=== PATIENT | male | born 1945 | race Caucasian/White ===

== ENCOUNTER → 2019-11-01 | Outpatient (CLI) | payer OTHER ==
--- NOTE | 2019-11-01 14:05 | US ---
EXAMINATION TYPE: US carotid duplex BILAT DATE OF EXAM: 11/01/2019 COMPARISON: US 2016 CLINICAL HISTORY: I65.29 Occlusion and stenosis of carotid artery. EXAM MEASUREMENTS: RIGHT: Peak Systolic Velocity (PSV) cm/sec ----- Right CCA: 40.9 ----- Right ICA: 102.7 ----- Right ECA: 58.1 ICA/CCA ratio: 2.5 RIGHT: End Diastole cm/sec ----- Right CCA: 0.0 ----- Right ICA: 17.1 ----- Right ECA: 0.0 LEFT: Peak Systolic Velocity (PSV) cm/sec ----- Left CCA: 50.3 ----- Left ICA: 75.6 ----- Left ECA: 166.8 ICA/CCA ratio: 1.5 LEFT: End Diastole cm/sec ----- Left CCA: 0.0 ----- Left ICA: 14.5 ----- Left ECA: 0.0 VERTEBRALS (direction of flow): Right Vertebral: Antegrade Left Vertebral: Antegrade Rhythm: Normal Redemonstration moderate to severe eccentric plaque bilaterally centered at bilateral carotid bulb le nay. IMPRESSION: Severe atherosclerotic changes bilaterally without hemodynamically significant stenosis in either internal carotid artery. No significant progression from prior ultrasound 2016. Criteria for Assigning % of Stenosis / Diameter reduction (Estimation based on the indirect measurements of the internal carotid artery velocities (ICA PSV). 1. Normal (no stenosis)=ICA PSV < 125 cm/s: ratio < 2.0: ICA EDV<40 cm/s. 2. Less than 50% stenosis=ICA PSV < 125 cm/s: ratio < 2.0: ICA EDV<40 cm/s. 3. 50 to 69% stenosis=ICA PSV of 125 to 230 cm/s: ration 2.0 ? 4.0: ICA EDV 40-100 cm/s. 4. Greater than 70% stenosis to near occlusion= ICA PSV > 230 cm/s: ratio > 4.0: ICA EDV > 100 cm/s. 5. Near occlusion= ICA PSV velocities may be low or undetectable: variable ratio and ICA EDV. 6. Total occlusion=unable to detect flow.
== END | disposition home or self-care (01) ==
LOC: RADUSWWP 13:18
PROVIDERS: ATTEND Nurse Practitioner Acute Care
DX: I65.23 Occlusion and stenosis of bilateral carotid arteries (principal)
CPT/HCPCS: 93880

== ENCOUNTER 2022-09-05 18:45 | Emergency (ER) | payer OTHER ==
[2022-09-05] MEDS ORDERED: ACETAMINOPHEN TAB 500 MG TAB PO STA (19:04)
[2022-09-05] MEDS ORDERED: ONDANSETRON 4 MG/2 ML VIAL IVP STA (19:04)
[2022-09-05 19:05] VITALS: RESP 18; TEMP 100.4
[2022-09-05] MEDS ORDERED: SODIUM CHLORIDE 0.9% 1,000 ML IV STA (19:06)
--- NOTE | 2022-09-05 19:21 | ED ---
Fall HPI - General Chief Complaint: Fall Stated Complaint: Coffee Ground Emesis Time Seen by Provider: 09/05/22 18:58 Source: patient, EMS, RN notes reviewed Mode of arrival: EMS - History of Present Illness Initial Comments: This is a 77-year-old male who presents to the emergency department from [facility] for several falls and vomiting. For the last 1-2 days, the patient states that he has had multiple falls. He is not sure why, denies feeling dizzy before hand. He has not had any loss of consciousness or injuries from these falls. Believes that they are because he feels fatigued. Denies being on any blood thinners. He has also had nausea and vomiting for the last 1-2 days. He did test positive for COVID earlier today. Patient otherwise states that he feels fine and denies any other complaints. Denies any fevers, chills, sore throat, cough, dyspnea, chest pain, palpitations, abdominal pain, diarrhea, back pain, or headaches. MD Complaint: fall - Related Data Allergies Allergy/AdvReac Type Severity Reaction Status Date / Time No Known Allergies Allergy Verified 09/05/22 19:00 Review of Systems ROS Statement: Those systems with pertinent positive or pertinent negative responses have been documented in the HPI. ROS Other: All systems not noted in ROS Statement are negative. Past Medical History Past Medical History: Hypertension History of Any Multi-Drug Resistant Organisms: None Reported Past Psychological History: No Psychological Hx Reported Smoking Status: Current some day smoker Past Alcohol Use History: Occasional Past Drug Use History: None Reported General Exam Limitations: no limitations General appearance: alert, in no apparent distress Head exam: Present: atraumatic, normocephalic, normal inspection Respiratory exam: Present: normal lung sounds bilaterally. Absent: respiratory distress, wheezes, rales, rhonchi, stridor Cardiovascular Exam: Present: regular rate, normal rhythm, normal heart sounds. Absent: systolic murmur, diastolic murmur, rubs, gallop, clicks GI/Abdominal exam: Present: soft, normal bowel sounds. Absent: distended, tenderness, guarding, rebound, rigid Neurological exam: Present: alert, oriented X3, CN II-XII intact Psychiatric exam: Present: normal affect, normal mood Skin exam: Present: warm, dry, intact, normal color. Absent: rash Course Vital Signs 09/05/22 18:49 Temperature 100.4 F H Pulse Rate 82 Respiratory 18 Rate Blood Pressure 139/77 O2 Sat by Pulse 97 Oximetry Medical Decision Making - Medical Decision Making This is a 77-year-old male who presents to the emergency department for frequent falls and nausea. Lab work was nonactionable and urinalysis is negative for any signs of infection. Chest x-ray reveals no acute cardiopulmonary process. Patient did have an episode of emesis upon initial evaluation. He was given IV fluids and Zofran, and reports symptomatic improvement. He was febrile at 100.4F, likely secondary to COVID-19 and was subsequently treated with Tylenol. I offered the Paxlovid prescription, however the patient declined. He was given a starter pack for Zofran in the event he has anymore nausea or vomiting. Recommended getting plenty of rest and continuing with symptomatic management. The patient is also instructed to quarantine for 5 days and practice extra precautions for an additional 5 days, including always wearing a mask around others and avoiding travel. Return precautions reviewed in depth, the patient is instructed to return to the emergency department with any new, worsening, or concerning symptoms. Patient verbalized understanding. This case was discussed in detail with the attending ED physician. Presentation, findings, and treatment plan discussed in detail as well. - Lab Data Result diagrams: 09/05/22 19:09/05/22 19: Lab Results 09/05/22 09/05/22 09/05/22 Range/Units 19:22 19:22 19:22 WBC 4.3 (3.8-10.6) k/uL RBC 4.62 (4.30-5.90) m/uL Hgb 13.3 (13.0-17.5) gm/dL Hct 39.8 (39.0-53.0) % MCV 86.1 (80.0-100.0) fL MCH 28.7 (25.0-35.0) pg MCHC 33.3 (31.0-37.0) g/dL RDW 16.7 H (11.5-15.5) % Plt Count 133 L (150-450) k/uL MPV 9.2 Neutrophils % 78 % Lymphocytes % 9 % Monocytes % 9 % Eosinophils % 0 % Basophils % 1 % Neutrophils # 3.4 (1.3-7.7) k/uL Lymphocytes # 0.4 L (1.0-4.8) k/uL Monocytes # 0.4 (0-1.0) k/uL Eosinophils # 0.0 (0-0.7) k/uL Basophils # 0.0 (0-0.2) k/uL Anisocytosis Slight Sodium 136 L (137-145) mmol/L Potassium 4.2 (3.5-5.1) mmol/L Chloride 102 (98-107) mmol/L Carbon Dioxide 21 L (22-30) mmol/L Anion Gap 13 mmol/L BUN 17 (9-20) mg/dL Creatinine 0.96 (0.66-1.25) mg/dL Est GFR (CKD-EPI)AfAm 89 (>60 ml/min/1.73 sqM) Est GFR (CKD-EPI)NonAf 77 (>60 ml/min/1.73 sqM) Glucose 137 H (74-99) mg/dL Calcium 8.9 (8.4-10.2) mg/dL Total Bilirubin 0.5 (0.2-1.3) mg/dL AST 38 (17-59) U/L ALT 23 (4-49) U/L Alkaline Phosphatase 84 (38-126) U/L Troponin I (0.000-0.034) ng/mL Total Protein 6.3 (6.3-8.2) g/dL Albumin 3.8 (3.5-5.0) g/dL Urine Color Yellow Urine Appearance Clear (Clear) Urine pH 5.5 (5.0-8.0) Ur Specific [place] 1.018 (1.001-1.035) Urine Protein Trace H (Negative) Urine Glucose (UA) Negative (Negative) Urine Ketones Negative (Negative) Urine Blood Negative (Negative) Urine Nitrite Negative (Negative) Urine Bilirubin Negative (Negative) Urine Urobilinogen <2.0 (<2.0) mg/dL Ur Leukocyte Esterase Negative (Negative) 09/05/22 Range/Units 19:22 WBC (3.8-10.6) k/uL RBC (4.30-5.90) m/uL Hgb (13.0-17.5) gm/dL Hct (39.0-53.0) % MCV (80.0-100.0) fL MCH (25.0-35.0) pg MCHC (31.0-37.0) g/dL RDW (11.5-15.5) % Plt Count (150-450) k/uL MPV Neutrophils % % Lymphocytes % % Monocytes % % Eosinophils % % Basophils % % Neutrophils # (1.3-7.7) k/uL Lymphocytes # (1.0-4.8) k/uL Monocytes # (0-1.0) k/uL Eosinophils # (0-0.7) k/uL Basophils # (0-0.2) k/uL Anisocytosis Sodium (137-145) mmol/L Potassium (3.5-5.1) mmol/L Chloride (98-107) mmol/L Carbon Dioxide (22-30) mmol/L Anion Gap mmol/L BUN (9-20) mg/dL Creatinine (0.66-1.25) mg/dL Est GFR (CKD-EPI)AfAm (>60 ml/min/1.73 sqM) Est GFR (CKD-EPI)NonAf (>60 ml/min/1.73 sqM) Glucose (74-99) mg/dL Calcium (8.4-10.2) mg/dL Total Bilirubin (0.2-1.3) mg/dL AST (17-59) U/L ALT (4-49) U/L Alkaline Phosphatase (38-126) U/L Troponin I <0.012 (0.000-0.034) ng/mL Total Protein (6.3-8.2) g/dL Albumin (3.5-5.0) g/dL Urine Color Urine Appearance (Clear) Urine pH (5.0-8.0) Ur Specific [place] (1.001-1.035) Urine Protein (Negative) Urine Glucose (UA) (Negative) Urine Ketones (Negative) Urine Blood (Negative) Urine Nitrite (Negative) Urine Bilirubin (Negative) Urine Urobilinogen (<2.0) mg/dL Ur Leukocyte Esterase (Negative) - EKG Data EKG Comments: Sinus rhythm with sinus arrhythmia. Ventricular rate 80 bpm, NH interval 161 ms, QRS duration 98 ms, QTC 411 ms. - Radiology Data Radiology results: report reviewed, image reviewed Disposition Clinical Impression: COVID-19 Disposition: HOME SELF-CARE Instructions (If sedation given, give patient instructions): Fall Prevention for Older Adults (ED), COVID-19 (Coronavirus Disease 2019) (ED), Safely Care for Someone Who Has COVID-19 (ED), How to Recover from COVID-19 at Home (ED), Social Distancing Guidelines for COVID-19 (ED) Additional Instructions: Return to the emergency department with any new, worsening, or concerning symptoms. The Zofran can be taken up to every 8 hours as needed for nausea and vomiting. Make sure that you are getting plenty of rest and continuing with symptomatic management. You are instructed to quarantine for 5 days and practice extra precautions for an additional 5 days, including always wearing a mask around others and avoiding travel. Take Tylenol and ibuprofen as needed for any fevers or discomfort. Is patient prescribed a controlled substance at d/c from ED?: No Referrals: Louie Jimenez DO [Primary Care Provider] - 1-2 days
[2022-09-05 19:34] LABS: Anisocytosis Slight; Appearance,Urine Clear (Clear); Basophils % (A) 1 %; Bilirubin,Urine Negative (Negative); Blood,Urine Negative (Negative); Color,Urine Yellow; Eosinophils % (A) 0 %; Glucose,Urine (UA) Negative (Negative); HCT 39.8 % (39.0-53.0); HGB 13.3 gm/dL (13.0-17.5); Ketones,Urine Negative (Negative); Leukocyte Esterase,Urine Negative (Negative); Lymphocytes # (A) 0.4 k/uL (1.0-4.8); Lymphocytes % (A) 9 %; MCH 28.7 pg (25.0-35.0); MCHC 33.3 g/dL (31.0-37.0); MCV 86.1 fL (80.0-100.0); Mean Platelet Volume 9.2; Monocytes # (A) 0.4 k/uL (0-1.0); Monocytes % (A) 9 %; Neutrophils # (A) 3.4 k/uL (1.3-7.7); Neutrophils % (A) 78 %; Nitrite,Urine Negative (Negative); PH, Urine 5.5 (5.0-8.0); Platelet Count 133 k/uL (150-450); Protein,Urine Trace (Negative); RBC 4.62 m/uL (4.30-5.90); RDW 16.7 % (11.5-15.5); Specific Gravity,Urine 1.018 (1.001-1.035); Urobilinogen,Urine <2.0 mg/dL (<2.0); WBC 4.3 k/uL (3.8-10.6)
[2022-09-05 19:45] LABS: Albumin 3.8 g/dL (3.5-5.0); Calcium 8.9 mg/dL (8.4-10.2); Potassium 4.2 mmol/L (3.5-5.1); Total Bilirubin 0.5 mg/dL (0.2-1.3); Total Protein 6.3 g/dL (6.3-8.2)
--- NOTE | 2022-09-05 20:55 | XR ---
EXAMINATION TYPE: XR chest 2V DATE OF EXAM: 09/05/2022 COMPARISON: NONE HISTORY: Weakness TECHNIQUE: 3 views FINDINGS: Heart and mediastinum are normal. The lungs are clear consolidation. There is some mild coa rsening of interstitial markings. No heart failure. There are chest leads. No pleural effusion. Bony thorax is intact. IMPRESSION: No active cardiopulmonary disease. Minimal fibrotic changes. Normal heart.
[2022-09-05] MEDS ORDERED: ONDANSETRON 4 MG ODT STARTER PACK 2 TAB BTL PO STA (21:17)
[2022-09-05 22:09] VITALS: BP 144/66; PULSE 78
== END 2022-09-05 22:09 | disposition home or self-care (01) ==
LOC: EC 18:45
DX: U07.1 COVID-19 (principal); I10 Essential (primary) hypertension; F17.200 Nicotine dependence, unspecified, uncomplicated; W19.XXXA Unspecified fall, initial encounter
CPT/HCPCS: 36415; 93005; 80053; 84484; 85025; 81003; 71046; 99284; 96374; 96361; J2405; S0119

== ENCOUNTER → 2023-12-18 | Outpatient (CLI) | payer MEDICARE, OTHER ==
--- NOTE | 2023-12-18 14:55 | USB ---
Reason for Exam: Clinical finding. Patient History: Maternal aunt had breast cancer at or over age 50. Technique: Method: Targeted. Findings: The area of palpable concern of the right breast, the axilla of the right breast and the retroareolar of the right breast were scanned. Ultrasound targeted to the patient's 1:00 palpable site, 2 cm from the nipple. Suspect underlying dense fibroglandular tissue in keeping with gynecomastia. Patient's mammogram. No discrete solid or cystic lesion is identified. No axillary lymphadenopathy.. Overall Assessment: Benign, BI-RAD 2 Management: Clinical Management of both breasts in 1 year. There is prominent bilateral gynecomastia, right greater than left. No discrete suspicious lesion is identified at the patient's 1:00 palpable site. Further clinical management is recommended. If any enlarging palpable areas detected, the patient can be rescanned. Results were given to the patient verbally at the time of exam. Electronically signed and approved by: Mine Falcon M.D. Radiologist
--- NOTE | 2023-12-18 15:20 | MM ---
Reason for Exam: Clinical finding. Indicated Problems: Lump or thickening of the right side for 3 Week(s). Patient History: Maternal aunt had breast cancer at or over age 50. Tissue Density: The breast tissue is heterogeneously dense. This may lower the sensitivity of mammography. Findings: Analyzed By CAD. Dense fibroglandular tissue, right greater than left. Palpable marker on the right. Benign regional punctate calcifications on the right. Further ultrasound evaluation recommended for the patient's right-sided palpable site. Otherwise, no discrete abnormality. Overall Assessment: Incomplete: need additional imaging evaluation, BI-RAD 0 Management: Diagnostic Breast Ultrasound of the right breast. Electronically signed and approved by: Mine Falcon M.D. Radiologist
== END | disposition home or self-care (01) ==
LOC: RADMAMWWP 13:44
PROVIDERS: ATTEND Family Medicine
DX: N63.10 Unspecified lump in the right breast, unspecified quadrant (principal); N63.20 Unspecified lump in the left breast, unspecified quadrant; R92.333 Mammographic heterogeneous density, bilateral breasts; Z80.3 Family history of malignant neoplasm of breast
CPT/HCPCS: 77066; 76642; G0279; 77062